=== PATIENT | female | born 1940 | race Caucasian/White ===

== ENCOUNTER 2024-01-04 14:30 | Outpatient (RCR) | payer OTHER, SELFPAY | END 2024-03-08 09:47 | disposition home or self-care (01) | PROVIDERS: Visit Provider Family Medicine | DX: R26.89 Other abnormalities of gait and mobility (principal); Z51.89 Encounter for other specified aftercare | CPT/HCPCS: 97110; 97112; 97116; 97161 ==

== ENCOUNTER 2024-09-24 13:45 | Outpatient (RCR) | payer MEDICARE, OTHER, SELFPAY | END 2024-12-25 15:08 | disposition home or self-care (01) | PROVIDERS: Visit Provider Family Medicine | DX: R26.89 Other abnormalities of gait and mobility (principal); R29.6 Repeated falls; Z51.89 Encounter for other specified aftercare | CPT/HCPCS: 97110; 97112; 97161 ==